=== PATIENT | female | born 1965 | race Hispanic/Latino ===

== ENCOUNTER 2018-01-20 06:08 | Observation (INO) | payer BC ==
[~2018-01-20] VITALS: Ht 160 cm; Wt 75.3 kg
[2018-01-20] VITALS (9 sets, daily range): BP systolic 131–146; BP diastolic 69–89
[2018-01-20] MEDS ORDERED: NITROGLYCERIN 1GM/1 INCH PACKET TD ONE (06:24)
[2018-01-20] MEDS ORDERED: ASPIRIN 325 MG TABLET ONE (06:24)
[2018-01-20 06:34] LABS: BASOPHILS % (AUTO) 0.9 % (0.0-5.0); EOSINOPHILS % (AUTO) 0.4 % (0.0-8.0); HEMATOCRIT 44.2 % (36-48); LYMPHOCYTES % (AUTO) 22.4 % (21.0-51.0); MEAN CORPUSCULAR HGB CONC 33.8 g/dL (32.0-36.0); MEAN CORPUSCULAR VOLUME 91.7 fL (79-99); MONOCYTES % (AUTO) 7.2 % (3.0-13.0); NEUTROPHILS % (AUTO) 69.1 % (40.0-77.0); NUCLEATED RED BLOOD CELLS 0.1 % (0.0-0.19); PLATELET COUNT (AUTO) 261 K/uL (130-400); RED BLOOD CELL COUNT(AUTO) 4.82 MIL/uL (4.00-5.50); RED CELL DISTRIBUTION WIDTH 12.9 % (11.0-15.5); WHITE BLOOD COUNT (AUTO) 7.6 K/uL (4.8-10.8)
[2018-01-20 06:57] LABS: INR 0.99 (0.85-1.15); PARTIAL THROMBOPLASTIN TIME 26.8 SEC (26.3-35.5); PROTHROMBIN TIME 10.4 SEC (9.6-11.6)
[2018-01-20 07:09] LABS: ALBUMIN 3.9 g/dL (3.5-5.0); BILIRUBIN,TOTAL 0.5 mg/dL (0.2-1.0); CREATININE 0.8 mg/dL (0.5-1.5); POTASSIUM 3.8 mmol/L (3.5-5.1)
[2018-01-20] MEDS ORDERED: ONDANSETRON HCL 4 MG/2 ML VIAL IV PRN (09:00)
[2018-01-20] MEDS ORDERED: HYDRALAZINE HCL 20 MG/ML VIAL IV PRN ×2 (09:00→15:15)
[2018-01-20] MEDS: SODIUM CHLORIDE 0.9% 1000ML 1,000 ML IV SCH ×3 (09:00→23:20)
[2018-01-20] MEDS ORDERED: METOPROLOL TARTRATE 25 MG TAB PO SCH (09:00)
[2018-01-20] MEDS: NITROGLYCERIN 1GM/1 INCH PACKET TD SCH ×2 (09:00→16:03)
[2018-01-20] MEDS ORDERED: ACETAMINOPHEN 325 MG TAB PO PRN ×2 (09:00)
[2018-01-20] MEDS ORDERED: MORPHINE SULFATE 2 MG/ML 1ML SYG IV PRN (09:00)
[2018-01-20] MEDS: ASPIRIN 325 MG TABLET PO SCH (09:00)
[2018-01-20] MEDS: ENOXAPARIN SODIUM 40 MG/0.4 ML SYRINGE SQ SCH (09:00)
[2018-01-20 09:21] LABS: HEMOGLOBIN A1C 5.5 % (4.0-6.0)
[2018-01-20 10:30] LABS: CRP QUANTITATIVE 3.1 mg/L (0.00-9.0); TROPONIN I 0.16 ng/mL (0.00-0.06)
[2018-01-20] MEDS ORDERED: ENOXAPARIN SODIUM 40 MG/0.4 ML SYRINGE SQ ONE (11:03)
[2018-01-20] MEDS ORDERED: SODIUM CHLORIDE 0.9% 1000ML 1,000 ML IV ONE (11:03)
[2018-01-20] MEDS ORDERED: METOPROLOL TARTRATE 25 MG TAB ONE (11:04)
[2018-01-20] MEDS: METOPROLOL TARTRATE 25 MG TAB PO SCH ×2 (12:35→20:54)
[2018-01-20] MEDS ORDERED: IOHEXOL-350 50ML VIAL IV ONE (14:03)
[2018-01-20] MEDS ORDERED: NITROGLYCERIN 5 MG/ML 10 ML VIAL IV ONE (14:03)
[2018-01-20] MEDS ORDERED: BIVALIRUDIN 250 MG/VIAL IV ONE (14:03)
[2018-01-20] MEDS ORDERED: LIDOCAINE HCL 2% 20ML ONE (14:04)
[2018-01-20] MEDS ORDERED: IOHEXOL 350 MG/ML 100ML INFUS..BTL IV ONE (14:04)
[2018-01-20] MEDS ORDERED: METOPROLOL TARTRATE 1 MG/ML 5ML VIAL IV ONE ×2 (14:40→14:44)
[2018-01-20] MEDS ORDERED: SODIUM CHLORIDE 0.9% 1000ML 1,000 ML IV SCH (15:07)
[2018-01-20 17:44] LABS: TROPONIN I 0.17 ng/mL (0.00-0.06)
[2018-01-20] MEDS: CARVEDILOL 6.25 MG TABLET PO SCH (20:54)
[2018-01-20] MEDS ORDERED: IBUPROFEN 200 MG TAB PO PRN (21:00)
[2018-01-21] VITALS: BP 110/58
[2018-01-21] MEDS: NITROGLYCERIN 1GM/1 INCH PACKET TD SCH ×2 (01:05→08:24)
[2018-01-21 01:59] LABS: HEMATOCRIT 37.9 % (36-48); MEAN CORPUSCULAR HEMOGLOBIN 30.4 pg (27.0-33.0); MEAN CORPUSCULAR HGB CONC 33.3 g/dL (32.0-36.0); MEAN CORPUSCULAR VOLUME 91.4 fL (79-99); PLATELET COUNT (AUTO) 258 K/uL (130-400); RED BLOOD CELL COUNT(AUTO) 4.15 MIL/uL (4.00-5.50); RED CELL DISTRIBUTION WIDTH 13.1 % (11.0-15.5); WHITE BLOOD COUNT (AUTO) 11.4 K/uL (4.8-10.8)
[2018-01-21 02:25] LABS: CREATININE 0.8 mg/dL (0.5-1.5); POTASSIUM 4.1 mmol/L (3.5-5.1); TROPONIN I 0.1 ng/mL (0.00-0.06)
[2018-01-21 04:00] VITALS: BP 99/50
[2018-01-21 05:43] VITALS: BP 100/59
[2018-01-21 07:00] VITALS: BP 100/63
[2018-01-21] MEDS: ASPIRIN 325 MG TABLET PO SCH (08:22)
[2018-01-21 08:23] VITALS: BP 100/66
[2018-01-21] MEDS: ENOXAPARIN SODIUM 40 MG/0.4 ML SYRINGE SQ SCH (08:23)
[2018-01-21] MEDS: CARVEDILOL 6.25 MG TABLET PO SCH (08:23)
[2018-01-21] MEDS: METOPROLOL TARTRATE 25 MG TAB PO SCH (08:24)
[2018-01-21] MEDS ORDERED: ASPIRIN 81MG TAB.CHEW PO SCH (09:00)
[2018-01-21] MEDS ORDERED: PANTOPRAZOLE SODIUM 40 MG TABLET.DR PO SCH (09:00)
[2018-01-21] MEDS ORDERED: LISINOPRIL 10 MG TABLET PO SCH (09:00)
== END 2018-01-21 09:50 | disposition home or self-care (01) ==
LOC: EDH 06:08 → EDHIP 09:00 → 4CH 15:23
PROVIDERS: ADMIT Internal Medicine; ATTEND Internal Medicine
DX: I20.0 Unstable angina (principal); R11.2 Nausea with vomiting, unspecified; R61 Generalized hyperhidrosis; E66.9 Obesity, unspecified; I25.2 Old myocardial infarction; I49.3 Ventricular premature depolarization; K21.9 Gastro-esophageal reflux disease without esophagitis; Z79.890 Hormone replacement therapy; Z82.49 Family history of ischemic heart disease and other diseases of the circulatory system; Z83.3 Family history of diabetes mellitus; Z90.710 Acquired absence of both cervix and uterus; Z79.01 Long term (current) use of anticoagulants; Z79.899 Other long term (current) drug therapy
CPT/HCPCS: 36415 ×2; 71045; 80048; 80053; 80061; 82550 ×4; 83036; 83874 ×4; 84484 ×4; 85025; 85027; 85378; 85610; 85730; 86140; 93005 ×4; 93306; 93458; 96361 ×2; 96372; 96374; 99283; C1760; C1894 ×2; G0378 ×25; J1644; J1650 ×2; J2405; J3490 ×4; J7030; Q9965; Q9967 ×2; J0583

== ENCOUNTER → 2018-01-26 | Outpatient (CLI) | payer OTHER | END | disposition home or self-care (01) | LOC: OIH 12:37 → EDUNIT# 13:00 | PROVIDERS: ATTEND Internal Medicine Cardiovascular Disease | DX: Z13.6 Encounter for screening for cardiovascular disorders (principal) | CPT/HCPCS: 75571 ==